=== PATIENT | male | born 1980 | race Caucasian/White ===

== ENCOUNTER 2016-12-05 00:25 | Emergency (ER) | payer SELFPAY ==
[~2016-12-05] VITALS: Ht 162.6 cm; Wt 59.0 kg
[2016-12-05] MEDS ORDERED: AMPICILLIN SOD/SULBACTAM SOD 3 GM in D5W MINI-BAG PLUS 100 ML IV ONE (00:45)
[2016-12-05] MEDS ORDERED: HYDROmorphone HCL 1 MG/ML SYRINGE (J1170) IV ONE (01:00)
[2016-12-05] MEDS ORDERED: TETANUS/DIPHTHERIA TOX ADSORB ADULT 0.5ML SYR/VIAL (90714) IM ONE (01:00)
[2016-12-05] MEDS ORDERED: BUPIVACAINE HCL 0.25% 10 ML VIAL SC ONE (01:15)
[2016-12-05] MEDS ORDERED: MORPHINE 10 MG/ML 1ML VIAL IV ONE (04:00)
[2016-12-05 04:54] VITALS: BP 104/56
--- NOTE | 2016-12-05 07:52 | REP ---
Clinical: Trauma. Technique: AP and lateral views. Findings: The patient demonstrates traumatic partial amputation at the first proximal phalanx with overlying soft tissue laceration. Impression: Traumatic amputation at the first proximal phalanx. Signed by Eric Khan MD 12/05/2016 07:43 A
== END 2016-12-05 04:59 | disposition short-term general hospital (02) ==
LOC: M ED 01:30
DX: S68.511A Complete traumatic transphalangeal amputation of right thumb, initial encounter (principal); X58.XXXA Exposure to other specified factors, initial encounter; Y92.9 Unspecified place or not applicable; Y93.52 Activity, horseback riding; Y99.9 Unspecified external cause status
CPT/HCPCS: 73120; 90471; 90714; 96372; 96374; 96375; 99284; J1170